=== PATIENT | male | born 1990 | race Hispanic/Latino ===

== ENCOUNTER 2018-08-06 11:59 | Emergency (ER) | payer SELFPAY ==
[~2018-08-06] VITALS: Ht 157.5 cm; Wt 50.0 kg
[~2018-08-06 11:59] MED LIST: AMOXICILLIN500 MG OR; GARAMYCIN0.31 OP
[2018-08-06] MEDS ORDERED: AMOXICILLIN875 MG PO (12:35)
[2018-08-06 12:40] VITALS: BP 134/78
== END 2018-08-06 12:40 | disposition home or self-care (01) | DRG 153 ==
LOC: ED 11:59
DX: J02.9 Acute pharyngitis, unspecified (principal); R05 Cough; R50.9 Fever, unspecified

== ENCOUNTER 2021-12-18 17:47 | Emergency (ER) | payer SELFPAY ==
[2021-12-18] VITALS (11 sets, daily range): BP systolic 123–166; BP diastolic 76–98
[~2021-12-18] VITALS: Ht 157.5 cm; Wt 59.0 kg
[~2021-12-18 17:47] MED LIST changes: +AMOXICILLIN875 MG PO
[2021-12-18] MEDS ORDERED: LORTAB 5/3255 MG PO (19:43)
[2021-12-18] MEDS ORDERED: KEFLEX500 MG PO (19:43)
== END 2021-12-18 20:33 | disposition home or self-care (01) | DRG 605 ==
LOC: ED 17:47
DX: S61.511A Laceration without foreign body of right wrist, initial encounter (principal); W31.89XA Contact with other specified machinery, initial encounter; Y92.096 Garden or yard of other non-institutional residence as the place of occurrence of the external cause; Y99.8 Other external cause status

== ENCOUNTER 2021-12-29 12:32 | Emergency (ER) | payer MEDICAID ==
[~2021-12-29] VITALS: Ht 157.5 cm; Wt 59.0 kg
[~2021-12-29 12:32] MED LIST changes: +KEFLEX500 MG PO; +LORTAB 5/3255 MG PO
[2021-12-29 12:47] VITALS: BP 131/83
[2021-12-29 13:00] VITALS: BP 138/93
[2021-12-29 13:30] VITALS: BP 142/91
== END 2021-12-29 13:43 | disposition home or self-care (01) ==
LOC: ED 12:32
DX: S61.511D Laceration without foreign body of right wrist, subsequent encounter (principal); F17.200 Nicotine dependence, unspecified, uncomplicated; X58.XXXD Exposure to other specified factors, subsequent encounter

== ENCOUNTER 2023-03-22 15:04 | Emergency (ER) | payer MEDICAID ==
[~2023-03-22] VITALS: Ht 160 cm; Wt 57.8 kg
[2023-03-22] VITALS (8 sets, daily range): BP systolic 127–170; BP diastolic 84–118
[2023-03-22] MEDS ORDERED: NAPROXEN500 MG PO (16:49)
== END 2023-03-22 17:06 | disposition home or self-care (01) ==
LOC: ED 15:04
DX: M70.21 Olecranon bursitis, right elbow (principal); F17.200 Nicotine dependence, unspecified, uncomplicated

== ENCOUNTER 2024-04-23 18:02 | Emergency (ER) | payer SELFPAY ==
[~2024-04-23] VITALS: Ht 160 cm; Wt 58.9 kg
[~2024-04-23 18:02] MED LIST changes: +NAPROXEN500 MG PO
[2024-04-23 18:11] VITALS: BP 156/106
[2024-04-23 18:15] VITALS: BP 146/98
[2024-04-23] MEDS ORDERED: LIDOcaine HCl 1% (Local Anesth.) 20 ML VIAL STI STA (18:17)
[2024-04-23] MEDS ORDERED: SODIUM CHLORIDE 500 ML BTL IR ONE (18:20)
[2024-04-23] MEDS ORDERED: POVIDONE IODINE 0.5 OZ/BTL TOP ONE (18:20)
[2024-04-23] MEDS ORDERED: NEOMYCIN-BACITRACIN-POLYMYXIN 0.5 GM/PAK PAK TOP ONE (18:20)
[2024-04-23 18:30] VITALS: BP 160/110
[2024-04-23 18:41] VITALS: BP 160/110
[2024-04-23] MEDS ORDERED: KEFLEX500 MG PO (18:42)
[2024-04-23 18:45] VITALS: BP 144/99
== END 2024-04-23 18:53 | disposition home or self-care (01) | DRG 605 ==
LOC: ED 18:02
PROC: 0HQDXZZ Repair Right Lower Arm Skin, External Approach (ICD-10-PCS; principal; 2024-04-23)
DX: S61.511A Laceration without foreign body of right wrist, initial encounter (principal); F17.200 Nicotine dependence, unspecified, uncomplicated; W26.8XXA Contact with other sharp object(s), not elsewhere classified, initial encounter; Y92.009 Unspecified place in unspecified non-institutional (private) residence as the place of occurrence of the external cause

== ENCOUNTER 2024-04-25 14:27 | Emergency (ER) | payer SELFPAY ==
[~2024-04-25] VITALS: Ht 160 cm; Wt 63.5 kg
[2024-04-25] MEDS ORDERED: LIDOCAINE W/ EPINEPHRINE 10 MG/ML INJ STI ONE (14:35)
[2024-04-25 15:41] VITALS: BP 145/98
[2024-04-25 15:45] VITALS: BP 142/90
== END 2024-04-25 15:52 | disposition home or self-care (01) | DRG 605 ==
LOC: ED 14:27
PROC: 0JQH3ZZ Repair Left Lower Arm Subcutaneous Tissue and Fascia, Percutaneous Approach (ICD-10-PCS; principal; 2024-04-25)
DX: S61.512A Laceration without foreign body of left wrist, initial encounter (principal); F17.200 Nicotine dependence, unspecified, uncomplicated; W25.XXXA Contact with sharp glass, initial encounter; Y92.009 Unspecified place in unspecified non-institutional (private) residence as the place of occurrence of the external cause